=== PATIENT | female | born 1950 | race Caucasian/White ===

== ENCOUNTER 2017-06-26 14:45 | Emergency (ER) | payer OTHER ==
[~2017-06-26] VITALS: Ht 154.9 cm; Wt 68.0 kg
[2017-06-26 14:56] VITALS: BP_SYST 146
[2017-06-26] MEDS ORDERED: [UNRECOGNIZED DRUG - OTHER] PO (15:11)
[2017-06-26] MEDS ORDERED: IBUP-1480 PO (15:11)
[2017-06-26] MEDS ORDERED: PRO40 PO (15:11)
[2017-06-26] MEDS ORDERED: PRED10TA PO (15:11)
[2017-06-26] MEDS ORDERED: METH2.5T PO (15:11)
[2017-06-26] MEDS ORDERED: LOSA100T11 PO (15:11)
[2017-06-26] MEDS ORDERED: PRAV40TA PO (15:11)
[2017-06-26] MEDS ORDERED: ALEN10TA6 PO (15:11)
[2017-06-26] MEDS ORDERED: METO50TA7 PO (15:11)
[2017-06-26] MEDS ORDERED: LEVO50TA77 PO (15:11)
[2017-06-26] MEDS ORDERED: FAMO40TA7 PO (15:11)
[2017-06-26] MEDS ORDERED: AZU500 PO (15:11)
[2017-06-26] MEDS ORDERED: NIFE90TA48 PO (15:11)
[2017-06-26] MEDS ORDERED: CHOL400T28 PO (15:11)
[2017-06-26 15:14] LABS: BASOPHILS # (AUTO) 0.1 K/uL (0.0-0.2); BASOPHILS % (AUTO) 0.6 % (0.0-2.0); EOSINOPHILS # (AUTO) 0.1 K/uL (0.0-0.4); EOSINOPHILS % (AUTO) 1.3 % (0.0-4.0); HEMATOCRIT 35.4 % (36-48); HEMOGLOBIN 11.6 g/dL (12.0-16.0); LYMPHOCYTES % (AUTO) 20.4 % (20.5-51.5); MEAN CORPUSCULAR HEMOGLOBIN 28 pg (27-31); MEAN CORPUSCULAR HGB CONC 33 % (32-36); MEAN CORPUSCULAR VOLUME 86 fL (79.0-98.0); MONOCYTES # (AUTO) 0.6 K/uL (0.0-1.0); MONOCYTES % (AUTO) 6.1 % (1.7-9.3); NEUTROPHILS # (AUTO) 6.9 K/uL (1.8-7.7); NEUTROPHILS % (AUTO) 71.6 % (40.0-70.0); PLATELET COUNT (AUTO) 250 K/uL (130-430); RED BLOOD CELL COUNT(AUTO) 4.12 MIL/uL (4.2-6.2); RED CELL DISTRIBUTION WIDTH 17.5 % (9.0-15.0); WHITE BLOOD COUNT (AUTO) 9.7 K/uL (4.8-10.8)
[2017-06-26 15:23] LABS: ANION GAP 12 (5-15); CALCIUM 9.7 mg/dL (8.4-11.0); CHLORIDE 104 mmol/L (98-107); CREATININE 0.75 mg/dL (0.55-1.30); GLUCOSE 181 mg/dL (70-99); SODIUM SERUM 142 mmol/L (136-145); UREA NITROGEN, BLOOD 19 mg/dL (8-21)
[2017-06-26] MEDS: ASPIRIN 81 MG TAB.CHEW PO ONE ×2 (15:28)
[2017-06-26 15:29] LABS: GFR AFRICAN AMERICAN 100 mL/min (>90)
[2017-06-26] MEDS: NITROGLYCERIN 1 INCH (GM) OINT. TP ONE (15:29)
[2017-06-26] MEDS: NACL 0.9% 1,000 ML IV ONE (15:29)
[2017-06-26 15:31] LABS: ALANINE AMINOTRANSFERASE 20 U/L (12-78); ALBUMIN 3.9 g/dL (3.4-4.8); ASPARTATE AMINOTRANSFERASE 19 U/L (10-37); TOTAL BILIRUBIN 0.4 mg/dL (0.0-1.0)
[2017-06-26 15:42] LABS: PROTHROMBIN TIME 10.6 SECS (9.5-12.5)
[2017-06-26] MEDS: PANTOPRAZOLE SODIUM 40 MG/VIAL (PROTONIX) IVP ONE (16:15)
[2017-06-26 16:29] VITALS: BP_SYST 133
== END 2017-06-26 16:26 | disposition left against medical advice (07) ==
LOC: SED 14:45
DX: R07.89 Other chest pain (principal); M06.9 Rheumatoid arthritis, unspecified; I10 Essential (primary) hypertension; Z79.899 Other long term (current) drug therapy
CPT/HCPCS: 36415; 71010; 80053; 84484; 85025; 85610; 85730; 93005; 96361; 96374; 99285; C9113; J7030

== ENCOUNTER 2022-04-26 13:25 | Emergency (ER) | payer OTHER ==
[~2022-04-26] VITALS: Ht 165.1 cm; Wt 68.0 kg
[~2022-04-26 13:25] MED LIST: ALEN10TA25 PO; CHOL400T28 PO; FAMO40TA7 PO; IBUP-1970 PO; LOSA100T3 PO; METH2.5T PO; METO50TA7 PO; NIFE90TA48 PO; PRAV40TA PO; PRED10TA PO; PRO40 PO; SULF500T60 PO; SYN50 PO; [UNRECOGNIZED DRUG - OTHER] PO
[2022-04-26 13:31] VITALS: BP_SYST 128
--- NOTE | 2022-04-26 14:20 | NUR ---
ER DR. ORTIZ EXAMINING PT IN TRIAGE
[2022-04-26 15:05] LABS: BASOPHILS % (AUTO) 0.4 % (0.0-2.0); EOSINOPHILS % (AUTO) 0.3 % (0.0-4.0); HEMATOCRIT 25.8 % (36-48); LYMPHOCYTES # (AUTO) 0.9 K/uL (1.0-5.5); LYMPHOCYTES % (AUTO) 25.8 % (20.5-51.5); MEAN CORPUSCULAR VOLUME 99 fL (79.0-98.0); MONOCYTES # (AUTO) 0.2 K/uL (0.0-1.0); MONOCYTES % (AUTO) 6.3 % (1.7-9.3); NEUTROPHILS # (AUTO) 2.4 K/uL (1.8-7.7); NEUTROPHILS % (AUTO) 67.2 % (40.0-70.0); PLATELET COUNT (AUTO) 192 K/uL (130-430); RED BLOOD CELL COUNT(AUTO) 2.62 MIL/uL (4.2-6.2); RED CELL DISTRIBUTION WIDTH 15.4 % (9.0-15.0); WHITE BLOOD COUNT (AUTO) 3.6 K/uL (4.8-10.8)
[2022-04-26 15:23] LABS: CALCIUM 9.8 mg/dL (8.4-11.0); CREATININE 1.35 mg/dL (0.55-1.30)
[2022-04-26 15:28] LABS: ALBUMIN 4.7 g/dL (3.4-4.8); TOTAL BILIRUBIN 0.8 mg/dL (0.0-1.0)
[2022-04-26 15:49] LABS: BILIRUBIN,URINE 2+ (NEGATIVE); BLOOD, URINE NEGATIVE (NEGATIVE); GLUCOSE,URINE TRACE (NEGATIVE); KETONES,URINE TRACE (NEGATIVE); NITRITE, URINE NEGATIVE (NEGATIVE); PROTEIN URINE 1+ (NEGATIVE)
[2022-04-26 15:58] LABS: CLARITY/URINE HAZY (CLEAR); COLOR,URINE AMBER (YELLOW); LEUKOCYTE ESTERASE ,URINE 1+ (NEGATIVE)
[2022-04-26 15:59] LABS: BACTERIA,URINE FEW /HPF (None Seen); MUCUS,URINE None Seen /LPF (None Seen); RBC,URINE NONE SEEN /HPF (0-3)
--- NOTE | 2022-04-26 16:00 | NUR ---
Patient to ER CHAIR 2 to gown for evaluation. Side rails up.
[2022-04-26] MEDS ORDERED: ONDANSETRON 4 MG ODT TAB PO ONE (16:45)
--- NOTE | 2022-04-26 16:52 | NUR ---
RPatient transported to radiology via AMBULATION, accompanied by STAFF.
[2022-04-26] MEDS ORDERED: CEPH-548 PO (16:55)
[2022-04-26] MEDS ORDERED: DOCU-144 PO (16:55)
[2022-04-26] MEDS ORDERED: POLY17PO4 PO (16:55)
[2022-04-26] MEDS ORDERED: ONDA-8 TL (16:55)
[2022-04-26] MEDS ORDERED: cephALEXin 500 MG CAPSULE PO ONE (17:00)
--- NOTE | 2022-04-26 17:07 | NUR ---
Returned from radiology, back to chair
--- NOTE | 2022-04-26 17:13 | NUR ---
MEDICATED ORDERED, WILL CONT TO MONITOR
[2022-04-26 18:09] VITALS: BP_SYST 114
--- NOTE | 2022-04-26 18:12 | NUR ---
Patient given written and verbal discharge instructions and verbalizes understanding. ER MD discussed with patient the results and treatment provided. Patient in stable condition. ID arm band removed. Rx of COLACE, ZOFRAN, CEPHALEXIN AND MIRALAX given. Patient educated on pain management and to follow up with PMD. Pain Scale 0/10. Opportunity for questions provided and answered. Medication side effect fact sheet provided.
== END 2022-04-26 18:09 | disposition home or self-care (01) ==
LOC: SED 13:25
DX: N39.0 Urinary tract infection, site not specified (principal); K59.00 Constipation, unspecified; D72.819 Decreased white blood cell count, unspecified; N17.9 Acute kidney failure, unspecified; R11.0 Nausea; I10 Essential (primary) hypertension; Z79.899 Other long term (current) drug therapy
CPT/HCPCS: 99285; 71045; 80053; 81000; 83690; 85025; 87086; 36415; 93005; 74018; Q0162